=== PATIENT | male | born 1950 | race Caucasian/White ===

== ENCOUNTER → 2017-08-12 | Outpatient (CLI) | payer OTHER ==
[~2017-08-12] MED LIST: CIPROFLOXACIN500 M1 PO; FLAGYL500 MG PO; NORCO 5-325 TA1 EACH PO; ONDANSETRON HCL4 M2 PO
--- NOTE | ~2017-08-12 | EKG ---
[address] [address] ELECTROCARDIOGRAM REPORT Name: SCHAFERTRELL M Room #: [facility] JeannieSanty#: [id number] Admission: 08/12/17 Attend Phys: Drea Gan MD Discharge: Date of : 54 Report #: [id number] THIS REPORT FOR: //name// [facility] Test Date: 2017-08-12 Test Time: 11:21:49 Pat Name: TRELL SCHAFER Department: Room: Gender: Undercover Operator: Jacque CAZARES : 1950 Requested By: Drea Gan Order Number: [id number] MD: Wally Gomez Measurements Intervals [place] Rate: 58 P: 17 [place]: 145 QRS: 33 QRSD: 89 T: 56 QT: 418 QTc: 411 Interpretive Statements Sinus rhythm No previous ECG available for comparison Electronically Signed On 08-12-2017 15:43:53 [employer] by Wally Gomez [email or web address] <ELECTRONICALLY SIGNED> By: Wally Gomez MD 08/12/17 [id number] [id number] Wally Gomez MD /PROMISE
== END ==
LOC: CV 10:53
DX: Z01.818 Encounter for other preprocedural examination (principal)